=== PATIENT | male | born 1995 | race African-American/Black ===

== ENCOUNTER 2022-05-06 18:58 | Emergency (ER) | payer OTHER ==
[~2022-05-06] VITALS: Ht 180.3 cm; Wt 81.7 kg
[2022-05-06] MEDS ORDERED: LIDOCAINE W/EPINEPHRINE 1% 20ML VIAL SC ONE (19:45)
[2022-05-06] MEDS ORDERED: PROC1AER16 PR (20:02)
[2022-05-06 20:24] VITALS: BP 160/90
== END 2022-05-06 20:35 | disposition home or self-care (01) ==
LOC: M ED 18:58
DX: K64.5 Perianal venous thrombosis (principal); F41.9 Anxiety disorder, unspecified; F32.9 Major depressive disorder, single episode, unspecified

== ENCOUNTER → 2022-08-09 | Outpatient (CLI) | payer OTHER ==
[~2022-08-09] MED LIST: METHACHOLINE KIT INH ONE; PROC1AER16 PR
== END ==
LOC: M CARPUL 08:14
PROVIDERS: ATTEND Internal Medicine Pulmonary Disease
DX: R06.00 Dyspnea, unspecified (principal)
CPT/HCPCS: 94070; J7674